=== PATIENT | female | born 1965 | race American Indian/Alaskan Native ===

== ENCOUNTER 2018-06-20 18:46 | Emergency (ER) | payer OTHER ==
[2018-06-20 19:15] VITALS: TEMP 98.8; BMI 37.9
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
[2018-06-20 21:32] VITALS: BP 136/78; PULSE 81; RESP 20; O2SAT 98
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
== END 2018-06-20 21:35 | disposition home or self-care (01) ==
LOC: ED 18:46
DX: S16.1XXA Strain of muscle, fascia and tendon at neck level, initial encounter (principal); V49.59XA Passenger injured in collision with other motor vehicles in traffic accident, initial encounter; Y92.410 Unspecified street and highway as the place of occurrence of the external cause; M54.5 Low back pain
CPT/HCPCS: 72050; 72110; 96372; 99284; J1885